=== PATIENT | female | born 1990 | race Caucasian/White ===

== ENCOUNTER 2017-01-11 16:35 | Emergency (ER) | payer OTHER ==
[~2017-01-11] VITALS: Wt 158.8 kg
[2017-01-11 16:47] VITALS: BP 154/106
[2017-01-11] MEDS ORDERED: HYDROCODONE BIT1 T11 PO (17:01)
[2017-01-11] MEDS ORDERED: PENICILLIN VK500 MG PO (17:01)
== END 2017-01-11 17:13 | disposition home or self-care (01) ==
LOC: ED 16:35
DX: K08.89 Other specified disorders of teeth and supporting structures (principal)

== ENCOUNTER 2019-06-22 19:29 | Emergency (ER) | payer OTHER ==
[~2019-06-22] VITALS: Ht 165.1 cm; Wt 152.0 kg
[2019-06-22 19:29] VITALS: BP 164/82
[~2019-06-22 19:29] MED LIST: HYDROCODONE BIT1 T11 PO; PENICILLIN VK500 MG PO
== END 2019-06-22 21:05 | disposition home or self-care (01) ==
LOC: ED 19:29
DX: S09.90XA Unspecified injury of head, initial encounter (principal); V49.59XA Passenger injured in collision with other motor vehicles in traffic accident, initial encounter; Y93.89 Activity, other specified; Y92.89 Other specified places as the place of occurrence of the external cause; Y99.9 Unspecified external cause status

== ENCOUNTER 2019-12-29 13:50 | Emergency (ER) | payer OTHER ==
[~2019-12-29] VITALS: Ht 165.1 cm; Wt 155.1 kg
[2019-12-29 14:10] VITALS: BP 156/92
[2019-12-29 15:12] LABS: BASO # 0.1 10*3/uL (0.0-0.1); BASO % 0.6 % (0.0-1.0); EOS # 0.2 10*3/uL (0.0-0.4); EOS % 2.1 % (1.0-4.0); HEMATOCRIT 41.8 % (37.0-47.0); HEMOGLOBIN 13.9 g/dl (12.0-16.0); LYMPH # 2.1 10*3/uL (1.3-4.4); MEAN CELL VOLUME 92.3 fl (81.0-99.0); MEAN CORPUSCULAR HGB 30.7 pg (27.0-31.0); MEAN CORPUSCULAR HGB CONC 33.3 g/dl (33.0-37.0); MEAN PLATELET VOLUME 9.4 fl (9.6-12.3); MONO # 0.7 10*3/uL (0.1-1.0); MONO % 7.8 % (3.0-9.0); NEUT # 5.4 10*3/uL (2.3-7.9); NEUT % 64.3 % (47.0-73.0); PLATELET COUNT AUTOMATED 266 10*3/uL (130-400); RED BLOOD COUNT 4.53 10*6/uL (4.10-5.10); RED CELL DISTRI WIDTH 12.6 % (0-14.5); WHITE BLOOD COUNT 8.4 10*3/uL (4.8-10.8)
[2019-12-29 15:22] LABS: ACT PARTIAL THROMBO TIME 28.5 SECONDS (20.0-32.1)
[2019-12-29 15:30] LABS: ALBUMIN 3.6 gm/dl (3.1-4.5); ALKALINE PHOSPHATASE 95 U/L (45-117); BUN 12 mg/dl (7-24); CHLORIDE 106 mmol/L (98-107); CREATININE 0.79 mg/dL (0.55-1.02); LIPASE 329 U/L (73-393); SGOT/AST 23 IU/L (3-35); SGPT/ALT 36 U/L (12-78); SODIUM 138 mmol/L (136-145); TOTAL PROTEIN 7.8 gm/dL (6.4-8.2)
[2019-12-29] MEDS ORDERED: ZOFRAN4 MG PO (15:46)
[2019-12-29] MEDS ORDERED: NORCO 5-325 TA1 EACH PO (15:46)
== END 2019-12-29 16:20 | disposition home or self-care (01) ==
LOC: EDSTATUS 13:50 → ED 13:50
PROVIDERS: Physician Assistant
DX: K80.20 Calculus of gallbladder without cholecystitis without obstruction (principal); Z90.49 Acquired absence of other specified parts of digestive tract; Z88.0 Allergy status to penicillin; Z79.899 Other long term (current) drug therapy

== ENCOUNTER 2020-01-12 18:43 | Emergency (ER) | payer OTHER ==
[~2020-01-12] VITALS: Ht 165.1 cm; Wt 156.5 kg
[~2020-01-12 18:43] MED LIST changes: +NORCO 5-325 TA1 EACH PO; +ZOFRAN4 MG PO
[2020-01-12 20:23] LABS: CLARITY CLEAR (CLEAR); COLOR YELLOW (YELLOW)
[2020-01-12 20:24] LABS: BILIRUBIN 1+ (NEGATIVE); BLOOD 1+ (NEGATIVE); GLUCOSE NEGATIVE (NEGATIVE); KETONE NEGATIVE (NEGATIVE); LEUKO ESTERASE NEGATIVE (NEGATIVE); NITRITE NEGATIVE (NEGATIVE); SPECIFIC GRAVITY 1.025 (1.005-1.030); UROBILINOGEN 0.2 E.U./dl (0.2-1.0)
[2020-01-12 20:25] LABS: BACTERIA 1+; EPITHELIAL CELLS TNTC; MUCOUS 2+
[2020-01-12 20:32] LABS: ALBUMIN 3.6 gm/dl (3.1-4.5); ALKALINE PHOSPHATASE 95 U/L (45-117); BUN 13 mg/dl (7-24); CHLORIDE 106 mmol/L (98-107); CREATININE 0.78 mg/dL (0.55-1.02); LIPASE 114 U/L (73-393); POTASSIUM 4.2 mmol/L (3.5-5.1); SGOT/AST 34 IU/L (3-35); SGPT/ALT 42 U/L (12-78); SODIUM 134 mmol/L (136-145); TOTAL PROTEIN 8.1 gm/dL (6.4-8.2)
[2020-01-12 21:26] LABS: BASO % 0.5 % (0.0-1.0); EOS # 0.2 10*3/uL (0.0-0.4); HEMATOCRIT 41.8 % (37.0-47.0); HEMOGLOBIN 13.9 g/dl (12.0-16.0); LYMPH # 1.7 10*3/uL (1.3-4.4); MEAN CELL VOLUME 92.5 fl (81.0-99.0); MEAN CORPUSCULAR HGB 30.8 pg (27.0-31.0); MEAN CORPUSCULAR HGB CONC 33.3 g/dl (33.0-37.0); MEAN PLATELET VOLUME 9.5 fl (9.6-12.3); MONO # 0.8 10*3/uL (0.1-1.0); MONO % 10.8 % (3.0-9.0); NEUT # 4.9 10*3/uL (2.3-7.9); NEUT % 64.4 % (47.0-73.0); PLATELET COUNT AUTOMATED 212 10*3/uL (130-400); RED BLOOD COUNT 4.52 10*6/uL (4.10-5.10); RED CELL DISTRI WIDTH 12.7 % (0-14.5); WHITE BLOOD COUNT 7.6 10*3/uL (4.8-10.8)
[2020-01-12 22:47] VITALS: BP 124/74
== END 2020-01-13 00:10 | disposition home or self-care (01) ==
LOC: ED 18:43
PROVIDERS: Emergency Medicine
DX: R10.11 Right upper quadrant pain (principal); Z79.899 Other long term (current) drug therapy; Z88.0 Allergy status to penicillin

== ENCOUNTER → 2020-07-22 | Outpatient (CLI) | payer OTHER | END | disposition home or self-care (01) | LOC: COVID19 10:29 | PROVIDERS: ATTEND Family Medicine | DX: Z20.828 Contact with and (suspected) exposure to other viral communicable diseases (principal) ==

== ENCOUNTER → 2021-08-14 | Outpatient (CLI) | payer OTHER | END | disposition home or self-care (01) | LOC: RAD 15:20 | PROVIDERS: ATTEND Chiropractor | DX: M54.2 Cervicalgia (principal); R07.89 Other chest pain; M54.6 Pain in thoracic spine ==

== ENCOUNTER → 2023-05-15 | Outpatient (CLI) | payer OTHER ==
[2023-05-15 16:19] LABS: BASO % 0.6 % (0.0-1.0); EOS # 0.1 10*3/uL (0.0-0.4); EOS % 2.3 % (1.0-4.0); HEMATOCRIT 39.6 % (37.0-47.0); LYMPH # 1.5 10*3/uL (1.3-4.4); LYMPH % 28.7 % (27.0-41.0); MEAN CELL VOLUME 91.2 fl (81.0-99.0); MEAN CORPUSCULAR HGB 31.3 pg (27.0-31.0); MEAN CORPUSCULAR HGB CONC 34.3 g/dl (33.0-37.0); MEAN PLATELET VOLUME 9.8 fl (9.6-12.3); MONO # 0.4 10*3/uL (0.1-1.0); MONO % 8.3 % (3.0-9.0); NEUT # 3.2 10*3/uL (2.3-7.9); NEUT % 59.9 % (47.0-73.0); PLATELET COUNT AUTOMATED 203 10*3/uL (130-400); RED BLOOD COUNT 4.34 10*6/uL (4.10-5.10); RED CELL DISTRI WIDTH 12.9 % (0-14.5); WHITE BLOOD COUNT 5.3 10*3/uL (4.8-10.8)
[2023-05-15 16:48] LABS: ALKALINE PHOSPHATASE 77 U/L (46-116); BUN 10 mg/dl (9-23); CHLORIDE 105 mmol/L (98-107); CHOLESTEROL 174 mg/dL (<200); LDL CHOLESTEROL 114 mg/dL (9-159); POTASSIUM 3.7 mmol/L (3.4-5.1); SGPT/ALT 20 U/L (10-49); TOTAL PROTEIN 7.3 gm/dL (6.0-8.0); TRIGLYCERIDES 126 mg/dl (<150)
[2023-05-15 17:14] LABS: FREE T4 1.07 ng/dl (0.89-1.76)
== END | disposition home or self-care (01) ==
LOC: LAB 15:32
PROVIDERS: ATTEND Nurse Practitioner Primary Care
DX: I10 Essential (primary) hypertension (principal); E28.2 Polycystic ovarian syndrome

== ENCOUNTER → 2023-05-28 | Outpatient (CLI) | payer OTHER | END | disposition home or self-care (01) | LOC: US 08:50 | PROVIDERS: ATTEND Nurse Practitioner Primary Care | DX: N60.01 Solitary cyst of right breast (principal); N63.0 Unspecified lump in unspecified breast ==

== ENCOUNTER → 2023-08-29 | Outpatient (CLI) | payer OTHER ==
[~2023-08-29] MED LIST changes: +QELBREE200 MG PO; +ZESTRIL10 MG PO
== END | disposition home or self-care (01) ==
LOC: CARD 14:49
PROVIDERS: ATTEND Physician Assistant
DX: Z51.81 Encounter for therapeutic drug level monitoring (principal); I45.9 Conduction disorder, unspecified; Z79.899 Other long term (current) drug therapy

== ENCOUNTER 2023-09-02 17:26 | Inpatient (IN) | payer OTHER ==
[~2023-09-02] VITALS: Ht 165.1 cm; Wt 120.9 kg
[2023-09-02 17:49] VITALS: BP 126/64
[2023-09-02 17:50] VITALS: BP 126/64
[2023-09-02 17:56] LABS: MEAN CELL VOLUME 96.6 fl (81.0-99.0); MEAN CORPUSCULAR HGB 31.3 pg (27.0-31.0); MEAN CORPUSCULAR HGB CONC 32.4 g/dl (33.0-37.0); MEAN PLATELET VOLUME 10.4 fl (9.6-12.3); PLATELET COUNT AUTOMATED 333 10*3/uL (130-400); RED BLOOD COUNT 3.83 10*6/uL (4.10-5.10); RED CELL DISTRI WIDTH 12.9 % (0-14.5); WHITE BLOOD COUNT 20.6 10*3/uL (4.8-10.8)
[2023-09-02 17:59] LABS: MANUAL DIFF REFLEX YES
[2023-09-02 18:01] LABS: VENOUS PH 7.195 (7.37-7.45)
[2023-09-02 18:09] LABS: ACT PARTIAL THROMBO TIME 22.6 SECONDS (20.0-32.1)
[2023-09-02 18:16] LABS: TOTAL CELLS COUNTED 100 #CELLS
[2023-09-02 18:17] LABS: BURR CELLS FEW; TOXIC GRANULATION SLIGHT
[2023-09-02 18:18] LABS: PLATELET SUFFICIENCY NORMAL (NORMAL)
[2023-09-02 18:19] VITALS: BP 150/78
[2023-09-02 18:19] LABS: ALKALINE PHOSPHATASE 81 U/L (46-116); BUN 10 mg/dl (9-23); CHLORIDE 106 mmol/L (98-107); CPK 41 U/L (34-171); LIPASE 32 U/L (12-53); POTASSIUM 2.9 mmol/L (3.4-5.1); SGPT/ALT 47 U/L (5-49); TOTAL PROTEIN 6.9 gm/dL (6.0-8.0)
[2023-09-02 19:20] VITALS: BP 133/74
[2023-09-02 20:26] VITALS: BP 135/79
[2023-09-02 20:35] LABS: HEMATOCRIT 39.5 % (37.0-47.0)
[2023-09-02 21:39] LABS: HEMATOCRIT 33.1 % (37.0-47.0)
[2023-09-02 21:45] LABS: BILIRUBIN Negative (Negative); BLOOD Negative (Negative); CLARITY Clear (Clear); COLOR Yellow (Yellow); GLUCOSE 3+ (Negative); KETONE 1+ (Negative); LEUKO ESTERASE Negative (Negative); NITRITE Negative (Negative); PH 5.5 (4.5-8.0); SPECIFIC GRAVITY >= 1.030 (1.001-1.030); UROBILINOGEN 0.2 E.U./dl (0.0-1.0)
[2023-09-02 22:05] LABS: BACTERIA 2+; MUCOUS 2+
[2023-09-02 22:45] VITALS: BP 131/78
[2023-09-03] VITALS (10 sets, daily range): BP systolic 118–169; BP diastolic 70–98
[2023-09-03 01:34] LABS: HEMATOCRIT 33.2 % (37.0-47.0); MEAN CELL VOLUME 95.4 fl (81.0-99.0); MEAN CORPUSCULAR HGB 31.6 pg (27.0-31.0); MEAN CORPUSCULAR HGB CONC 33.1 g/dl (33.0-37.0); MEAN PLATELET VOLUME 9.9 fl (9.6-12.3); RED BLOOD COUNT 3.48 10*6/uL (4.10-5.10); RED CELL DISTRI WIDTH 13.2 % (0-14.5)
[2023-09-03 01:36] LABS: MANUAL DIFF REFLEX YES; PLATELET COUNT AUTOMATED 227 10*3/uL (130-400)
[2023-09-03 01:56] LABS: ALKALINE PHOSPHATASE 70 U/L (46-116); BUN 6 mg/dl (9-23); CHLORIDE 112 mmol/L (98-107); SGPT/ALT 91 U/L (5-49); TOTAL PROTEIN 6.3 gm/dL (6.0-8.0)
[2023-09-03 01:57] LABS: PLATELET SUFFICIENCY NORMAL (NORMAL); TOTAL CELLS COUNTED 100 #CELLS
[2023-09-03 02:11] LABS: POTASSIUM 4.3 mmol/L (3.4-5.1)
[2023-09-03 06:08] LABS: HEMATOCRIT 28.7 % (37.0-47.0); LYMPH # 0.9 10*3/uL (1.3-4.4); LYMPH % 8.3 % (27.0-41.0); MEAN CELL VOLUME 93.8 fl (81.0-99.0); MEAN CORPUSCULAR HGB 31.4 pg (27.0-31.0); MEAN CORPUSCULAR HGB CONC 33.4 g/dl (33.0-37.0); MEAN PLATELET VOLUME 10.1 fl (9.6-12.3); MONO # 0.5 10*3/uL (0.1-1.0); MONO % 4.7 % (3.0-9.0); NEUT # 9.4 10*3/uL (2.3-7.9); NEUT % 86.6 % (47.0-73.0); PLATELET COUNT AUTOMATED 219 10*3/uL (130-400); RED BLOOD COUNT 3.06 10*6/uL (4.10-5.10); RED CELL DISTRI WIDTH 13.2 % (0-14.5); WHITE BLOOD COUNT 10.9 10*3/uL (4.8-10.8)
[2023-09-03 06:23] LABS: ALKALINE PHOSPHATASE 63 U/L (46-116); BUN 5 mg/dl (9-23); CHLORIDE 112 mmol/L (98-107); CHOLESTEROL 139 mg/dL (<200); LDL CHOLESTEROL 90 mg/dL (9-159); POTASSIUM 3.9 mmol/L (3.4-5.1); SGPT/ALT 88 U/L (5-49); TOTAL PROTEIN 5.8 gm/dL (6.0-8.0); TRIGLYCERIDES 85 mg/dl (<150)
[2023-09-03 06:32] LABS: ACT PARTIAL THROMBO TIME 23.7 SECONDS (20.0-32.1)
[2023-09-04] VITALS: BP 114/58
[2023-09-04 07:43] LABS: BASO % 0.1 % (0.0-1.0); HEMATOCRIT 23.9 % (37.0-47.0); LYMPH # 1.8 10*3/uL (1.3-4.4); LYMPH % 17.4 % (27.0-41.0); MEAN CELL VOLUME 94.8 fl (81.0-99.0); MEAN CORPUSCULAR HGB CONC 32.6 g/dl (33.0-37.0); MEAN PLATELET VOLUME 10.2 fl (9.6-12.3); MONO # 0.7 10*3/uL (0.1-1.0); MONO % 6.2 % (3.0-9.0); NEUT % 75.8 % (47.0-73.0); PLATELET COUNT AUTOMATED 172 10*3/uL (130-400); RED BLOOD COUNT 2.52 10*6/uL (4.10-5.10); RED CELL DISTRI WIDTH 13.5 % (0-14.5); WHITE BLOOD COUNT 10.5 10*3/uL (4.8-10.8)
[2023-09-04 08:00] VITALS: BP 108/57
[2023-09-04 08:04] LABS: ALKALINE PHOSPHATASE 56 U/L (46-116); BUN 5 mg/dl (9-23); CHLORIDE 111 mmol/L (98-107); POTASSIUM 3.6 mmol/L (3.4-5.1); SGPT/ALT 50 U/L (5-49); TOTAL PROTEIN 5.6 gm/dL (6.0-8.0)
[2023-09-04] MEDS ORDERED: HYDROCODONE-AC1 EAC1 PO (10:43)
== END 2023-09-04 11:55 | disposition home or self-care (01) | DRG 853 ==
LOC: ED 17:26 → ICCU 22:50 → EDHOLD 22:50 → ICCU 09-03 01:19
PROVIDERS: Family Medicine; Nurse Practitioner Family; Student in an Organized Health Care Education/Training Program; Surgery; ADMIT Emergency Medicine; ATTEND Emergency Medicine
PROC: 0W3G0ZZ Control Bleeding in Peritoneal Cavity, Open Approach (ICD-10-PCS; principal; 2023-09-03)
DX: A41.9 Sepsis, unspecified organism (principal); I21.4 Non-ST elevation (NSTEMI) myocardial infarction; N17.0 Acute kidney failure with tubular necrosis; R57.8 Other shock; K91.840 Postprocedural hemorrhage of a digestive system organ or structure following a digestive system procedure; E87.20 Acidosis, unspecified; N39.0 Urinary tract infection, site not specified; D62 Acute posthemorrhagic anemia; Z68.41 Body mass index [BMI] 40.0-44.9, adult; F90.9 Attention-deficit hyperactivity disorder, unspecified type; E87.6 Hypokalemia; R73.9 Hyperglycemia, unspecified; R58 Hemorrhage, not elsewhere classified; E66.01 Morbid (severe) obesity due to excess calories; R65.20 Severe sepsis without septic shock; Y83.8 Other surgical procedures as the cause of abnormal reaction of the patient, or of later complication, without mention of misadventure at the time of the procedure; Y82.8 Other medical devices associated with adverse incidents; I10 Essential (primary) hypertension; Z90.49 Acquired absence of other specified parts of digestive tract; Z82.49 Family history of ischemic heart disease and other diseases of the circulatory system; Z83.3 Family history of diabetes mellitus; Z78.9 Other specified health status

== ENCOUNTER 2024-07-11 13:19 | Emergency (ER) | payer OTHER ==
[~2024-07-11] VITALS: Ht 165.1 cm; Wt 131.5 kg
[~2024-07-11 13:19] MED LIST changes: +HYDROCODONE-AC1 EAC1 PO
[2024-07-11] MEDS ORDERED: SODIUM CHLORIDE 0.9% 1,000 ML IV ONE (14:10)
[2024-07-11] MEDS ORDERED: Labetalol Hydrochloride 20 MG/4 ML SYR IV ONE (14:10)
[2024-07-11 14:12] LABS: BILIRUBIN Negative (Negative); BLOOD Negative (Negative); CLARITY Clear (Clear); COLOR Yellow (Yellow); GLUCOSE Negative (Negative); KETONE Negative (Negative); LEUKO ESTERASE Negative (Negative); NITRITE Negative (Negative); SPECIFIC GRAVITY <= 1.005 (1.001-1.030); UROBILINOGEN 0.2 E.U./dl (0.0-1.0)
[2024-07-11] MEDS ORDERED: METFORMIN XR500 MG PO (14:13)
[2024-07-11 14:18] LABS: BACTERIA TRACE
[2024-07-11 14:21] LABS: BASO % 0.3 % (0.0-1.0); EOS # 0.3 10*3/uL (0.0-0.4); EOS % 4.6 % (1.0-4.0); HEMATOCRIT 36.8 % (37.0-47.0); LYMPH # 1.2 10*3/uL (1.3-4.4); LYMPH % 17.1 % (27.0-41.0); MEAN CELL VOLUME 94.6 fl (81.0-99.0); MEAN CORPUSCULAR HGB 32.1 pg (27.0-31.0); MEAN PLATELET VOLUME 9.4 fl (9.6-12.3); MONO # 0.5 10*3/uL (0.1-1.0); MONO % 6.9 % (3.0-9.0); NEUT # 5.1 10*3/uL (2.3-7.9); NEUT % 70.8 % (47.0-73.0); PLATELET COUNT AUTOMATED 185 10*3/uL (130-400); RED BLOOD COUNT 3.89 10*6/uL (4.10-5.10); RED CELL DISTRI WIDTH 13.2 % (0-14.5); WHITE BLOOD COUNT 7.2 10*3/uL (4.8-10.8)
[2024-07-11] MEDS ORDERED: NORMODYNE,TRAN100 MG PO (14:36)
[2024-07-11 14:41] LABS: ALKALINE PHOSPHATASE 97 U/L (46-116); BUN 8 mg/dl (9-23); CHLORIDE 105 mmol/L (98-107); POTASSIUM 3.7 mmol/L (3.4-5.1); SGPT/ALT 21 U/L (5-49); TOTAL PROTEIN 6.9 gm/dL (6.0-8.0)
[2024-07-11] MEDS ORDERED: Labetalol Hydrochloride 100 MG TAB PO ONE (14:45)
[2024-07-11 15:10] VITALS: BP 125/68
== END 2024-07-11 15:38 | disposition home or self-care (01) ==
LOC: ED 13:19
PROVIDERS: Emergency Medicine
DX: O16.2 Unspecified maternal hypertension, second trimester (principal); F41.9 Anxiety disorder, unspecified; F12.90 Cannabis use, unspecified, uncomplicated; Z90.49 Acquired absence of other specified parts of digestive tract; Z98.890 Other specified postprocedural states; Z3A.22 22 weeks gestation of pregnancy